=== PATIENT | female | born 1965 | race Caucasian/White ===

== ENCOUNTER 2023-04-08 09:24 | Outpatient (CLI) | payer BC | END 2023-04-08 09:25 | disposition home or self-care (01) | LOC: RAD 09:24 | PROVIDERS: ATTEND Internal Medicine Rheumatology | DX: M17.12 Unilateral primary osteoarthritis, left knee (principal); M25.551 Pain in right hip; M46.1 Sacroiliitis, not elsewhere classified; M16.0 Bilateral primary osteoarthritis of hip; M67.88 Other specified disorders of synovium and tendon, other site | CPT/HCPCS: 72202 ==